=== PATIENT | male | born 1945 | race Asian ===

== ENCOUNTER → 2016-09-12 | Outpatient (CLI) | payer MEDICARE ==
[~2016-09-12] MED LIST: ALBUTEROL17 GM INH; ANEXSIA 5/325 M1 TA1 PO; BENZONATATE PO; COMBIVENT U/D3 M2 INH; LEVAQUIN750 M1 PO; LIPITOR PO; LIPITOR20 MG PO; LOPRESSOR PO; METOPROLOL TART25 MG PO; MOTRIN600 M1 PO; ROBITUSSIN100 MG/51; ROBITUSSIN100 MG/51 PO; STERAPRED5 MG/DOSE1 PO; SYMBICORT INH; TYLENOL325 M1 PO; VIBRAMYCIN100 M1 PO
--- NOTE | ~2016-09-12 | CR63 ---
[facility] A Service of [facility] & [facility] RADIOLOGY TEXT RESULTS PATIENT: GIUSEPPE PENN V LOCATION: [facility] : 49 UNIT #: [id number] AGE: [address]: LUZ MARIA LYMAN APRN SEX: M ORDER DR: [id number] [facility] [address] [place], [place] [address] [id number] O MR#: [id number] Acc #: [id number] NAME: GIUSEPPE PENN : 1945 SEX: M STUDY DATE/TIME: 09/12/2016 10:17 UNIT: [facility] ROOM: STUDY DESCRIPTION: CR Chest 2 View Attending Physician: Luz Maria Lyman Aprn Referring Physician: Luz Maria Lyman Aprn Ordering Physician: Luz Maria Lyman Aprn Primary Care Physician: Jasmin Sanchez M.D. MEDICAL IMAGING REPORT This report is preliminary unless electronic signature is present EXAM PA and lateral chest radiograph INDICATION Shortness of breath and cough for 2 weeks. FINDINGS Heart size is within normal limits. There is an apparent infiltrate within the left infrahilar region which is new when compared to the prior study. No pneumothorax or pleural effusion is seen. There is chronic scarring identified at the left lung base. No aggressive osseous abnormalities are seen. IMPRESSION Infiltrate identified within the left infrahilar region and certainly could reflect pneumonia given history, however, patient also has a smoking history. The possibility of an underlying mass lesion is not excluded. Short-term follow up exam to document complete resolution is recommended. CT could also be considered for additional evaluation. Dictated by... Lary Johnson M.D. THIS IS AN ELECTRONICALLY VERIFIED REPORT Lary Johnson M.D. at 09/14/2016 7:55 AM AFF/aa TD: 09/12/2016 15:31 JOB #: [id number] MEDICAL IMAGING REPORT Page 1 of 1 COPY
== END | disposition home or self-care (01) ==
LOC: CRAD 09:57
DX: R05 Cough (principal); D72.829 Elevated white blood cell count, unspecified; R91.8 Other nonspecific abnormal finding of lung field; Z87.891 Personal history of nicotine dependence
CPT/HCPCS: 71020

== ENCOUNTER → 2016-09-22 | Outpatient (CLI) | payer MEDICARE ==
--- NOTE | ~2016-09-22 | CT57 ---
[facility] A Service of [facility] RADIOLOGY TEXT RESULTS PATIENT: GIUSEPPE PENN V LOCATION: [facility] : 49 UNIT #: [id number] AGE: [address]: LUZ MARIA LYMAN APRN SEX: M ORDER DR: [id number] [facility] [address] [place], [place] [address] [id number] O MR#: [id number] Acc #: [id number] NAME: GIUSEPPE PENN : 1945 SEX: M STUDY DATE/TIME: 09/22/2016 13:42 UNIT: [facility] ROOM: STUDY DESCRIPTION: CT Chest Wo Cont Attending Physician: Luz Maria Lyman Aprn Referring Physician: Luz Maria Lyman Aprn Ordering Physician: Luz Maria Lyman Aprn Primary Care Physician: Jasmin Sanchez M.D. MEDICAL IMAGING REPORT This report is preliminary unless electronic signature is present EXAM CT chest without contrast INDICATIONS Chest pain, bilateral frontal chest pain for the past week. TECHNIQUE Unenhanced CT of the abdomen and pelvis. This CT exam was performed with one or more of the following radiation dose reduction techniques: automatic exposure control, adjustment of mA and/or kV according to patient size, and iterative reconstruction. COMPARISON 02/04/2015. FINDINGS There is chronic volume loss, atelectasis and bronchiectasis in the right upper lobe. This is stable. Linear scarring in the right middle lobe and lingula. Nodular density in the lateral left lower lobe measures 1.3 cm and is not significantly changed. There is no new dense consolidation. No pneumothorax or pleural fluid. Cardiomegaly. Coronary artery calcification. No adenopathy. Enlargement of multinodular appearance of the thyroid gland is similar. No acute findings in the included upper abdomen. No aggressive appearing bone lesion. IMPRESSION No acute findings. No appreciable change from 02/04/2015. Dictated by... Rafa Carvalho M.D. [facility] A Service of [facility] RADIOLOGY TEXT RESULTS PATIENT: GIUSEPPE PENN V LOCATION: [facility] : 49 UNIT #: [id number] AGE: [address]: LUZ MARIA LYMAN APRN SEX: M ORDER DR: THIS IS AN ELECTRONICALLY VERIFIED REPORT Rafa Carvalho M.D. at 09/23/2016 7:02 AM EED/rosalie TD: 09/22/2016 20:48 JOB #: [id number] MEDICAL IMAGING REPORT Page 1 of 1 COPY
== END | disposition home or self-care (01) ==
LOC: CCAT 12:30
DX: R93.8 Abnormal findings on diagnostic imaging of other specified body structures (principal); D72.829 Elevated white blood cell count, unspecified
CPT/HCPCS: 71250

== ENCOUNTER → 2016-12-23 | Outpatient (CLI) | payer MEDICARE ==
--- NOTE | ~2016-12-23 | US6 ---
[facility] A Service of [facility] & [facility] RADIOLOGY TEXT RESULTS PATIENT: GIUSEPPE PENN V LOCATION: [facility] : 49 UNIT #: [id number] AGE: [address]: Eleanor Chau MD SEX: M ORDER DR: [id number] [facility] [address] [place], [place] [address] [id number] O MR#: [id number] Acc #: [id number] NAME: GIUSEPPE PENN : 1945 SEX: M STUDY DATE/TIME: 12/23/2016 9:54 UNIT: [facility] ROOM: STUDY DESCRIPTION: US Abdominal Limited Attending Physician: Eleanor Chau M.D. Referring Physician: Eleanor Chau M.D. Ordering Physician: Eleanor Chau M.D. Primary Care Physician: Eleanor Chau M.D. MEDICAL IMAGING REPORT This report is preliminary unless electronic signature is present EXAM Right upper quadrant ultrasound, 12/23/2016. HISTORY Epigastric abdominal pain for 1 week. FINDINGS The liver is homogeneous in echotexture and demonstrates no cystic or solid mass lesions. The intra and extrahepatic bile ducts are not dilated. The gallbladder is normal with no evidence of cholelithiasis, wall thickening or pericholecystic fluid. The common duct measures 5 mm. The pancreas is normal. There is a 1.1 cm cyst on the right kidney. IMPRESSION Right renal cyst. Otherwise negative right upper quadrant ultrasound. Dictated by... Jeronimo Hdz M.D. THIS IS AN ELECTRONICALLY VERIFIED REPORT Jeronimo Hdz M.D. at 12/23/2016 4:54 PM FENG/shelbie TD: 12/23/2016 15:38 JOB #: [id number] MEDICAL IMAGING REPORT Page 1 of 1 COPY
== END | disposition home or self-care (01) ==
LOC: CGUS 09:38
DX: R10.9 Unspecified abdominal pain (principal); N28.1 Cyst of kidney, acquired
CPT/HCPCS: 76705